=== PATIENT | male | born 1945 | race Caucasian/White ===

== ENCOUNTER → 2017-04-05 | Outpatient (CLI) | payer MEDICARE ==
--- NOTE | 2017-04-05 08:09 | US ---
EXAMINATION TYPE: US duplex aorta DATE OF EXAM: 04/05/2017 COMPARISON: NONE CLINICAL HISTORY: Z13.9 FAMILY HX OF AAA,SCR.U/S. Screening, family history of AAA EXAM MEASUREMENTS: Abdominal Aorta: Proximal: 1.9 x 2.3cm Mid: 1.7 x 2.0cm Distal: 1.5 x 1.6cm Bifurcation: RT: 1.1 x 1.2cm LT: 0.9 x 1.2cm *Technical limitations due to overlying bowel content, portions are obscured. Calcifications noted th roughout. No evidence of AAA at this time Exam noted suboptimal per technologist due to overlying bowel gas. IMPRESSION: Suboptimal study without greater than 3 cm aneurysmal change to the abdominal aorta iden tified.
== END | disposition home or self-care (01) ==
LOC: RADUSWWP 06:49
PROVIDERS: ATTEND Family Medicine
DX: I71.4 Abdominal aortic aneurysm, without rupture (principal); Z13.9 Encounter for screening, unspecified; Z82.49 Family history of ischemic heart disease and other diseases of the circulatory system
CPT/HCPCS: 93979

== ENCOUNTER 2022-12-21 12:20 | Emergency (ER) | payer MEDICARE ==
[2022-12-21] MEDS ORDERED: LIDOCAINE 1% INJ 10MG/ML (30 ML VIAL-PF) SQ ONE (12:53)
--- NOTE | 2022-12-21 12:53 | ED ---
General Adult HPI - General Chief complaint: Wound/Laceration Stated complaint: cut hand Time Seen by Provider: 12/21/22 12:45 Source: patient Mode of arrival: ambulatory Limitations: no limitations - History of Present Illness Initial comments: 77-year-old male with no significant past medical history presenting to the ED with chief of laceration. 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 Denies any other injury. Last tetanus shot one year ago. No other complaints. - Related Data Allergies Allergy/AdvReac Type Severity Reaction Status Date / Time No Known Allergies Allergy Verified 12/21/22 12:41 Review of Systems ROS Statement: Those systems with pertinent positive or pertinent negative responses have been documented in the HPI. ROS Other: All systems not noted in ROS Statement are negative. Past Medical History Past Medical History: Diabetes Mellitus History of Any Multi-Drug Resistant Organisms: None Reported Past Surgical History: Orthopedic Surgery Additional Past Surgical History / Comment(s): lt shoulder Past Psychological History: No Psychological Hx Reported Smoking Status: Never smoker Past Alcohol Use History: None Reported Past Drug Use History: None Reported General Exam Limitations: no limitations Left Hand L/R Back: 1 - Linear laceration approximately 7 cm. No foreign bodies. An sensation of the hand intact. Neurological exam: Present: alert, oriented X3 Psychiatric exam: Present: normal affect, normal mood Skin exam: Present: warm, dry Course Vital Signs 12/21/22 12:38 Temperature 98.8 F Pulse Rate 100 Respiratory 20 Rate Blood Pressure 143/67 O2 Sat by Pulse 97 Oximetry Procedures - Laceration Laceration #1 Site: hand Size (cm): 7 Description: linear Depth: simple, single layer Sedation/Analgesia: none Anesthetic Used: lidocaine 1%, without epi Anesthesia Technique: local infiltration Amount (mls): 4 Pre-repair: wound explored, irrigated extensively Type of Sutures: nylon Size of Sutures: 4-0 Number of Sutures: 7 Technique: simple, interrupted Patient Tolerated Procedure: well, no complications Medical Decision Making - Medical Decision Making Was pt. sent in by a medical professional or institution (SOLANGE Aiken, UNDER[employer], urgent care, hospital, or intermediate...) When possible be specific @ -No Did you speak to anyone other than the patient for history (EMS, parent, family, police, friend...)? What history was obtained from this source @ -No Did you review nursing and triage notes (agree or disagree)? Why? @ -I reviewed and agree with nursing and triage notes Were old charts reviewed (outside hosp., previous admission, EMS record, old EKG, old radiological studies, urgent care reports/EKG's, intermediate records)? Report findings @ -No old charts were reviewed Differential Diagnosis (chest pain, altered mental status, abdominal pain women, abdominal pain men, vaginal bleeding, weakness, fever, dyspnea, syncope, headache, dizziness, GI bleed, back pain, seizure, CVA, palpatations, mental health, musculoskeletal)? @ -not applicable EKG interpreted by me (3pts min.). @ -As above X-rays interpreted by me (1pt min.). @ -None done CT interpreted by me (1pt min.). @ -None done U/S interpreted by me (1pt. min.). @ -None done What testing was considered but not performed or refused? (CT, X-rays, U/S, labs)? Why? @ -None What meds were considered but not given or refused? Why? @ -None Did you discuss the management of the patient with other professionals (professionals i.e. SOLANGE Aiken, [employer], lab, RT, psych nurse, home health care social worker, keyliner, teacher, public service officer, case packer)? Give summary @ -No Was smoking cessation discussed for >3mins.? @ -No Was critical care preformed (if so, how long)? @ -No Were there social determinants of health that impacted care today? How? (Homelessness, low income, unemployed, alcoholism, drug addiction, transportation, low edu. Level, literacy, decrease access to med. care, custodial, rehab)? @ -No Was there de-escalation of care discussed even if they declined (Discuss DNR or withdrawal of care, Hospice)? DNR status @ -No What co-morbidities impacted this encounter? (DM, HTN, Smoking, COPD, CAD, Cancer, CVA, ARF, Chemo, Hep., AIDS, mental health diagnosis, sleep apnea, morbid obesity)? @ -None Was patient admitted / discharged? Hospital course, mention meds given and route, prescriptions, significant lab abnormalities, going to OR and other pertinent info. @ -Discharged, patient had laceration repaired. Please see procedure note for further details Undiagnosed new problem with uncertain prognosis? @ -No Drug Therapy requiring intensive monitoring for toxicity (Heparin, Nitro, Insulin, Cardizem)? @ -No Were any procedures done? @ -Yes, please see procedure note further details Diagnosis/symptom? @ -Laceration Acute, or Chronic, or Acute on Chronic? @ -Acute Uncomplicated (without systemic symptoms) or Complicated (systemic symptoms)? @ -Complicated Side effects of treatment? @ -No Exacerbation, Progression, or Severe Exacerbation? @ -No Poses a threat to life or bodily function? How? (Chest pain, [place], [place], pneumonia, PE, COPD, DKA, ARF, appy, cholecystitis, CVA, Diverticulitis, Homicidal, Suicidal, threat to staff... and all critical care pts) @ -No Disposition Clinical Impression: Laceration of left hand Disposition: HOME SELF-CARE Condition: Good Additional Instructions: Please return to the Emergency Department if symptoms worsen or any other concerns. Wound care as discussed. Please see PCP or return in 10-14 days for suture removal. Monitor for signs of infection. Is patient prescribed a controlled substance at d/c from ED?: No Referrals: Ramón Rawls MD [Primary Care Provider] - 1-2 days Time of Disposition: 14:02
[2022-12-21] MEDS ORDERED: BACITRACIN OINT 1 EACH PACKET TOPICAL ONE (13:59)
[2022-12-21 14:26] VITALS: BP 139/81; PULSE 88; RESP 18; TEMP 98.4
== END 2022-12-21 14:24 | disposition home or self-care (01) ==
LOC: EC 12:20
DX: S61.412A Laceration without foreign body of left hand, initial encounter (principal); E11.9 Type 2 diabetes mellitus without complications; W45.8XXA Other foreign body or object entering through skin, initial encounter
CPT/HCPCS: 99283; 12002; J2001

== ENCOUNTER → 2024-06-17 | Outpatient (CLI) | payer MEDICARE ==
--- NOTE | 2024-06-17 09:57 | MM ---
Reason for Exam: Clinical finding. Baseline mammogram. Indicated Problems: Lump or thickening of the right side for 2 Week(s). Prior Study Comparison: Patient's first Mammogram. No prior studies available for comparison. Tissue Density: The breasts are almost entirely fatty. Findings: Analyzed By CAD. Scattered benign round and punctate calcifications are noted. Palpable marker placed at the lower axilla. There appear to be some underlying degenerative benign-appearing lymph nodes with large fatty brandie. Further ultrasound evaluation is recommended. Otherwise, no significant mass, suspicious microcalcification, or other discrete abnormality is seen. Overall Assessment: Incomplete: need additional imaging evaluation, BI-RAD 0 Management: Diagnostic Breast Ultrasound of the right breast. [facility], , 06/17/2024 9:54 AM. Electronically signed and approved by: Shannan Gonzalez M.D. Radiologist
--- NOTE | 2024-06-17 10:44 | USB ---
Reason for Exam: Clinical finding. Technique: Method: Targeted. Findings: The axilla of the right breast was scanned. Targeted ultrasound right axilla at the patient's palpable site shows a prominent 5.2 x 5.4 x 1.5 cm lymph node. There is very thin uniform cortex with large fatty hilum. No suspicious nodularity or soft tissue thickening is seen. No other solid or cystic lesion. Overall Assessment: Benign, BI-RAD 2 Management: Clinical Management of the right breast in 1 year. A large but benign lymph node noted in the right axilla at the patient's palpable site. Large fatty hilum and thin uniform cortex though the lymph node measures up to 5.2 cm. Correlate for a reactive/post inflammatory etiology. The patient can be rescanned if any suspicious clinical features develop or if any further enlargement is noted. Results were given to the patient verbally at the time of exam. [facility], , 06/17/2024 10:41 AM. Electronically signed and approved by: Shannan Gonzalez M.D. Radiologist
== END | disposition home or self-care (01) ==
LOC: RADMAMWWP 09:11
PROVIDERS: ATTEND Family Medicine
DX: N63.10 Unspecified lump in the right breast, unspecified quadrant (principal)
CPT/HCPCS: 77066; 76642; G0279; 77062

== ENCOUNTER 2024-07-30 17:54 | Observation (INO) | payer MEDICARE ==
--- NOTE | 2024-07-30 18:36 | ED ---
General Adult HPI - General Chief complaint: Neuro Symptoms/Deficit Stated complaint: Poss CVA Time Seen by Provider: 07/30/24 18:00 Source: patient, EMS Mode of arrival: EMS - History of Present Illness Initial comments: Patient is an 78-year-old male with a past medical history of diabetes presenting today for right-sided headache. Patient states he woke up this morning with right headache and right neck pain. States pain is reproducible palpation of the right worship. Took Tylenol this morning that had that slightly improved his headache. States at some point this morning he also felt like his speech was slurred that has since resolved. Has noticed discharge from his right eye over the last 2 to 3 days. Endorses mild dizziness, mild blurred vision out of the right eye. States blurred vision in his right eye has been on and off going over the "for a long time". States headache is 7 out of 10 and describes "as a pain". Not the worst headache of his life. He was not sudden onset. He denies any focal numbness or weakness. Denies any chest pain or shortness of breath. Denies any recent illness fevers or chills. Endorses nasal congestion. Denies Abdominal pain nausea, vomiting or diarrhea. Patient states the eye itself is not painful, he denies pain with extraocular movements. - Related Data Home Medications Medication Instructions Recorded Confirmed Aspirin EC [Ecotrin Low Dose] 81 mg PO DAILY 07/30/24 07/30/24 Ibuprofen [Motrin] 800 mg PO TID PRN 07/30/24 07/30/24 Insulin Glargine,Hum.rec.anlog 40 unit SQ DAILY 07/30/24 07/31/24 [Basaglar Kwikpen U-100] Simvastatin [Zocor] 80 mg PO DAILY 07/30/24 07/30/24 Tamsulosin [Flomax] 0.4 mg PO DAILY 07/30/24 07/30/24 lisinopriL [Zestril] 10 mg PO DAILY 07/30/24 07/30/24 metFORMIN HCL [Glucophage] 1,000 mg PO BID 07/30/24 07/30/24 Dulaglutide [Trulicity] 0.75 mg SQ MO 07/31/24 07/31/24 Allergies Allergy/AdvReac Type Severity Reaction Status Date / Time No Known Allergies Allergy Verified 07/30/24 20:12 Review of Systems ROS Statement: Those systems with pertinent positive or pertinent negative responses have been documented in the HPI. ROS Other: All systems not noted in ROS Statement are negative. Constitutional: Denies: fever, chills Eyes: Reports: eye discharge, vision change. Denies: eye pain ENT: Reports: congestion Respiratory: Denies: dyspnea Cardiovascular: Denies: chest pain Gastrointestinal: Denies: abdominal pain, nausea, vomiting, diarrhea Neurological: Reports: headache. Denies: weakness, numbness, paresthesias, confusion, vertigo Past Medical History Past Medical History: Diabetes Mellitus History of Any Multi-Drug Resistant Organisms: None Reported Past Surgical History: Orthopedic Surgery Additional Past Surgical History / Comment(s): lt shoulder Past Psychological History: No Psychological Hx Reported Smoking Status: Never smoker Past Alcohol Use History: None Reported Past Drug Use History: None Reported - Past Family History Mother Family Medical History: Diabetes Mellitus Father Family Medical History: CVA/TIA Brother(s) Family Medical History: Diabetes Mellitus General Exam - General Exam Comments Initial Comments: PE: CONSTITUTIONAL: [no apparent distress, well appearing] SKIN: [warm, dry, no jaundice, hives or petechiae] EYES:[ pupils are equally round, extraocular movements intact without nystagmus, scant dried discharge around right eye, clear conjunctiva, non-icteric sclera, ] HENT: [normocephalic, atraumatic, moist mucus membranes, oropharynx clear without exudates] NECK: , [Full range of motion, normal appearance] PULMONARY: [clear to auscultation without wheezes, rhonchi, or rales, normal excursion, no accessory muscle use and no stridor] CARDIOVASCULAR:[ regular rate, rhythm, normal S1 and S2. No appreciated murmurs, rubs or gallops. Strong radial pulses with intact distal perfusion. No lower extremity edema] GASTROINTESTINAL: [soft, active bowel sounds throughout, non-tender, non-diste nded, no palpable masses, no rebound or guarding. No hepatosplenomegaly] GENITOURINARY: MUSCULOSKELETAL: [Extremities have no gross deformity, no edema, redness, or swelling. No calf swelling ] NEUROLOGIC: [_a/o x 3, GCS 15, normal mentation and speech. Moves all extremities x 4 without motor or sensory deficit. 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 Motor strength is 5/5 in all extremities. No abnormal movements. Normal muscle tone. Sensation to light touch is intact bilaterally. No cerebellar signs (cfrqly-mf-[id number], vqvw-hz-xrix, and rapid alternating movements are normal), finger-nose testing with the right upper extremity and rapid alternating movements of right upper extremity were unable to be obtained due to chronic contractures of this ex tremity] PSYCHIATRIC:[ _normal mood and affect, thought process is clear and linear] Course Vital Signs 07/30/24 07/30/24 07/30/24 18:27 21:25 22:44 Temperature 98.1 F Pulse Rate 75 86 Respiratory 16 18 18 Rate Blood Pressure 164/112 140/78 139/63 O2 Sat by Pulse 100 96 Oximetry EKG Findings - EKG Comments: EKG Findings:: Sinus Rhythm w/ first degree AV block, rate 76 bpm, GA int 258 ms, QRS duration 166 ms, QT/QTc 4 6/437 ms, left axis deviation, right bundle branch block, no ST elevations or depressions, no prior for comparison Medical Decision Making - Medical Decision Making Was pt. sent in by a medical professional or institution (, PA, PUBLIC RELATIONS STUDIES DIRECTOR, urgent care, hospital, or fpc...) When possible be specific @ -No Did you speak to anyone other than the patient for history (EMS, parent, family, police, friend...)? What history was obtained from this source Pt's son also notes patient has had a decreased appetite today and has not eaten much which is not normal for him Did you review nursing and triage notes (agree or disagree)? Why? @ -I reviewed nursing and triage notes Were old charts reviewed (outside hosp., previous admission, EMS record, old EKG, old radiological studies, urgent care reports/EKG's, fpc records)? Report findings @ -Medical records reviewed Differential Diagnosis (chest pain, altered mental status, abdominal pain women, abdominal pain men, vaginal bleeding, weakness, fever, dyspnea, syncope, headache, dizziness, GI bleed, back pain, seizure, CVA, palpatations, mental health, musculoskeletal)? @ -Differential Headache: Migraine, tension MALDONADO, cluster MALDONADO, central venous thrombosis, temporal arteritis, acute closure glaucoma, intercranial hemorrhage, sinusitis, this is not meant to be an all-inclusive list. EKG interpreted by me (3pts min.). @ -As above X-rays interpreted by me (1pt min.). @ -Chest x-ray shows no cardiomegaly, no consolidations or pleural effusions CT interpreted by me (1pt min.). @ -I see no evidence of hemorrhage or mass effect on CT brain, no evidence of periorbital abscess, no evidence of large vessel occlusion or dissection on CTA U/S interpreted by me (1pt. min.). @ -None done What testing was considered but not performed or refused? (CT, X-rays, U/S, labs)? Why? @ -None What meds were considered but not given or refused? Why? @ -None Did you discuss the management of the patient with other professionals (professionals i.e. , PA, PUBLIC RELATIONS STUDIES DIRECTOR, lab, RT, psych nurse, social worker palliative care, truck packer, teacher, international first officer, pillowcase sewer)? Give summary @ -No Was smoking cessation discussed for >3mins.? @ -No Was critical care preformed (if so, how long)? @ -No Were there social determinants of health that impacted care today? How? (Homelessness, low income, unemployed, alcoholism, drug addiction, transportation, low edu. Level, literacy, decrease access to med. care, care home, rehab)? @ -No Was there de-escalation of care discussed even if they declined (Discuss DNR or withdrawal of care, Hospice)? @ -No What co-morbidities impacted this encounter? (DM, HTN, Smoking, COPD, CAD, Cancer, CVA, ARF, Chemo, Hep., AIDS, mental health diagnosis, sleep apnea, morbid obesity)? @DM Was patient admitted / discharged? Hospital course, mention meds given and route, prescriptions, significant lab abnormalities, going to OR and other pertinent info. @Admission- Patient is a pleasant 78-year-old gentleman history diabetes presenting today for right sided headache intermittent blurred vision, and malaise. Patient seen and assessed on arrival. Complete history physical exam obtained. No focal neuro deficits on assessment. Differential diagnoses above. Will administer Tylenol, obtain CT brain CTA head and neck, stroke workup, ESR, CRP. Pt and son agreeable with POC . I personally reviewed patient CT brain, CTA, I see no evidence of hemorrhage, mass effect or large vessel occlusion or dissection. I see no evidence of orbital cellulitis or infectious process. Patient remains painful despite Tylenol. I did attempt nasal cannula oxygen as I considered cluster headaches as part of differential however this did not improve patient's headache. At this point we will give tramadol with Tylenol, I remain concerned for temporal arteritis given pattern and description of symptoms, so we will administer pre dnisone and admit. Patient's son and patient agreeable with plan of care. Additionally, intraocular pressures were checked, wnl, pressure in Right eye was 9, left eye was 8. Case discussed with Dr. Rawls, kindly accepts patient for admission. Undiagnosed new problem with uncertain prognosis? @ -No Drug Therapy requiring intensive monitoring for toxicity (Heparin, Nitro, Insulin, Cardizem)? @ -No Were any procedures done? @ -No Diagnosis/symptom? @Right sided headache, possible temporal arteritis Acute, or Chronic, or Acute on Chronic? acute Uncomplicated (without systemic symptoms) or Complicated (systemic symptoms)? complicated Side effects of treatment? @ -No Exacerbation, Progression, or Severe Exacerbation? @ -No Poses a threat to life or bodily function? How? (Chest pain, [place], [place], pneumonia, PE, COPD, DKA, ARF, appy, cholecystitis, CVA, Diverticulitis, Homicidal, Suicidal, threat to staff... and all critical care pts) Yes, if 2/2 TIA or temporal arteritis, could lead to permanant vision loss if left untreated - Lab Data Result diagrams: 07/30/24 18:43 07/30/24 18:43 Lab Results 07/30/24 07/30/24 07/30/24 Range/Units 18:36 18:43 18:43 WBC 9.4 (3.8-10.6) k/uL RBC 4.60 (4.30-5.90) m/uL Hgb 13.3 (13.0-17.5) gm/dL Hct 39.5 (39.0-53.0) % MCV 85.8 (80.0-100.0) fL MCH 29.0 (25.0-35.0) pg MCHC 33.8 (31.0-37.0) g/dL RDW 12.6 (11.5-15.5) % Plt Count 248 (150-450) k/uL MPV 8.1 Neutrophils % 79 % Lymphocytes % 14 % Monocytes % 5 % Eosinophils % 1 % Basophils % 1 % Neutrophils # 7.4 (1.3-7.7) k/uL Lymphocytes # 1.3 (1.0-4.8) k/uL Monocytes # 0.5 (0-1.0) k/uL Eosinophils # 0.1 (0-0.7) k/uL Basophils # 0.1 (0-0.2) k/uL ESR 9 (0-20) mm/Hr PT 11.1 (10.0-12.5) sec INR 1.0 (<1.2) APTT 21.5 L (22.0-30.0) sec Sodium (137-145) mmol/L Potassium (3.5-5.1) mmol/L Chloride (98-107) mmol/L Carbon Dioxide (22-30) mmol/L Anion Gap mmol/L BUN (9-20) mg/dL Creatinine (0.66-1.25) mg/dL Est GFR (CKD-EPI)AfAm (>60 ml/min/1.73 sqM) Est GFR (CKD-EPI)NonAf (>60 ml/min/1.73 sqM) Glucose (74-99) mg/dL POC Glucose (mg/dL) 83 (70-110) mg/dL POC Glu Pecan Huller ID Yarger Tra Calcium (8.4-10.2) mg/dL Total Bilirubin (0.2-1.3) mg/dL AST (17-59) U/L ALT (4-49) U/L Alkaline Phosphatase (38-126) U/L Creatine Kinase (55-170) U/L Troponin I (0.000-0.034) ng/mL C-Reactive Protein (<1.0) mg/dL Total Protein (6.3-8.2) g/dL Albumin (3.5-5.0) g/dL Influenza Type A (PCR) (Not Detectd) Influenza Type B (PCR) (Not Detectd) RSV (PCR) (Not Detectd) SARS-CoV-2 (PCR) (Not Detectd) 07/30/24 07/30/24 07/30/24 Range/Units 18:43 18:43 19:59 WBC (3.8-10.6) k/uL RBC (4.30-5.90) m/uL Hgb (13.0-17.5) gm/dL Hct (39.0-53.0) % MCV (80.0-100.0) fL MCH (25.0-35.0) pg MCHC (31.0-37.0) g/dL RDW (11.5-15.5) % Plt Count (150-450) k/uL MPV Neutrophils % % Lymphocytes % % Monocytes % % Eosinophils % % Basophils % % Neutrophils # (1.3-7.7) k/uL Lymphocytes # (1.0-4.8) k/uL Monocytes # (0-1.0) k/uL Eosinophils # (0-0.7) k/uL Basophils # (0-0.2) k/uL ESR (0-20) mm/Hr PT (10.0-12.5) sec INR (<1.2) APTT (22.0-30.0) sec Sodium 139 (137-145) mmol/L Potassium 3.8 (3.5-5.1) mmol/L Chloride 107 (98-107) mmol/L Carbon Dioxide 21 L (22-30) mmol/L Anion Gap 11 mmol/L BUN 20 (9-20) mg/dL Creatinine 1.04 (0.66-1.25) mg/dL Est GFR (CKD-EPI)AfAm 78 (>60 ml/min/1.73 sqM) Est GFR (CKD-EPI)NonAf 68 (>60 ml/min/1.73 sqM) Glucose 81 (74-99) mg/dL POC Glucose (mg/dL) (70-110) mg/dL POC Glu Pecan Huller ID Calcium 9.7 (8.4-10.2) mg/dL Total Bilirubin 0.5 (0.2-1.3) mg/dL AST 16 L (17-59) U/L ALT 11 (4-49) U/L Alkaline Phosphatase 83 (38-126) U/L Creatine Kinase 74 (55-170) U/L Troponin I 0.015 (0.000-0.034) ng/mL C-Reactive Protein <0.5 (<1.0) mg/dL Total Protein 6.5 (6.3-8.2) g/dL Albumin 4.2 (3.5-5.0) g/dL Influenza Type A (PCR) Not Detected (Not Detectd) Influenza Type B (PCR) Not Detected (Not Detectd) RSV (PCR) Not Detected (Not Detectd) SARS-CoV-2 (PCR) Not Detected (Not Detectd) 07/30/24 Range/Units 20:42 WBC (3.8-10.6) k/uL RBC (4.30-5.90) m/uL Hgb (13.0-17.5) gm/dL Hct (39.0-53.0) % MCV (80.0-100.0) fL MCH (25.0-35.0) pg MCHC (31.0-37.0) g/dL RDW (11.5-15.5) % Plt Count (150-450) k/uL MPV Neutrophils % % Lymphocytes % % Monocytes % % Eosinophils % % Basophils % % Neutrophils # (1.3-7.7) k/uL Lymphocytes # (1.0-4.8) k/uL Monocytes # (0-1.0) k/uL Eosinophils # (0-0.7) k/uL Basophils # (0-0.2) k/uL ESR (0-20) mm/Hr PT (10.0-12.5) sec INR (<1.2) APTT (22.0-30.0) sec Sodium (137-145) mmol/L Potassium (3.5-5.1) mmol/L Chloride (98-107) mmol/L Carbon Dioxide (22-30) mmol/L Anion Gap mmol/L BUN (9-20) mg/dL Creatinine (0.66-1.25) mg/dL Est GFR (CKD-EPI)AfAm (>60 ml/min/1.73 sqM) Est GFR (CKD-EPI)NonAf (>60 ml/min/1.73 sqM) Glucose (74-99) mg/dL POC Glucose (mg/dL) 102 (70-110) mg/dL POC Glu Pecan Huller ID Berny Haq Calcium (8.4-10.2) mg/dL Total Bilirubin (0.2-1.3) mg/dL AST (17-59) U/L ALT (4-49) U/L Alkaline Phosphatase (38-126) U/L Creatine Kinase (55-170) U/L Troponin I (0.000-0.034) ng/mL C-Reactive Protein (<1.0) mg/dL Total Protein (6.3-8.2) g/dL Albumin (3.5-5.0) g/dL Influenza Type A (PCR) (Not Detectd) Influenza Type B (PCR) (Not Detectd) RSV (PCR) (Not Detectd) SARS-CoV-2 (PCR) (Not Detectd) Disposition Clinical Impression: Right sided temporal headache Disposition: ADMITTED IP TO THIS HOSP Condition: Stable
[2024-07-30 18:39] LABS: Glucose,Whole Blood 83 mg/dL (70-110)
[2024-07-30 18:55] LABS: Basophils # (A) 0.1 k/uL (0-0.2); Basophils % (A) 1 %; Eosinophils # (A) 0.1 k/uL (0-0.7); Eosinophils % (A) 1 %; HCT 39.5 % (39.0-53.0); HGB 13.3 gm/dL (13.0-17.5); Lymphocytes # (A) 1.3 k/uL (1.0-4.8); Lymphocytes % (A) 14 %; MCHC 33.8 g/dL (31.0-37.0); MCV 85.8 fL (80.0-100.0); Mean Platelet Volume 8.1; Monocytes # (A) 0.5 k/uL (0-1.0); Monocytes % (A) 5 %; Neutrophils # (A) 7.4 k/uL (1.3-7.7); Neutrophils % (A) 79 %; Platelet Count 248 k/uL (150-450); RDW 12.6 % (11.5-15.5); WBC 9.4 k/uL (3.8-10.6)
[2024-07-30] MEDS: ACETAMINOPHEN TAB 325 MG TAB PO STA (18:58)
[2024-07-30 19:12] LABS: ALT 11 U/L (4-49); AST 16 U/L (17-59); African American GFR (CKD) 78 (>60 ml/min/1.73 sqM); Albumin 4.2 g/dL (3.5-5.0); Alkaline Phosphatase 83 U/L (38-126); Anion Gap 11 mmol/L; Blood Urea Nitrogen 20 mg/dL (9-20); C Reactive Protein <0.5 mg/dL (<1.0); Calcium 9.7 mg/dL (8.4-10.2); Carbon Dioxide 21 mmol/L (22-30); Chloride 107 mmol/L (98-107); Creatine Kinase 74 U/L (55-170); Glucose 81 mg/dL (74-99); Non-African American GFR(CKD) 68 (>60 ml/min/1.73 sqM); Potassium 3.8 mmol/L (3.5-5.1); Sodium 139 mmol/L (137-145); Total Bilirubin 0.5 mg/dL (0.2-1.3); Total Protein 6.5 g/dL (6.3-8.2)
[2024-07-30 19:23] LABS: Prothrombin Time 11.1 sec (10.0-12.5)
[2024-07-30 19:25] LABS: Partial Thromboplastin Time 21.5 sec (22.0-30.0)
--- NOTE | 2024-07-30 20:36 | XR ---
EXAMINATION TYPE: XR chest 2V DATE OF EXAM: 07/30/2024 8:23 PM COMPARISON: None. CLINICAL INDICATION: Male, 78 years old with history of R. MALDONADO, stroke workup, pain. TECHNIQUE: Frontal and lateral views of the chest are obtained. FINDINGS: There is no focal air space opacity, pleural effusion, or pneumothorax seen. The cardiac silhouette size is within normal limits. Bridging osteophytes in the thoracic spine are present. IMPRESSION: No acute cardiopulmonary process. [facility], , 07/30/2024 8:34 PM
[2024-07-30] MEDS: PROPARACAINE 0.5% OPHTH DROPS 15 ML BTL RIGHT EYE STA (20:38)
--- NOTE | 2024-07-30 20:39 | CT ---
EXAMINATION TYPE: CT brain wo con DATE OF EXAM: 07/30/2024 COMPARISON: None. CLINICAL INDICATION: Male, 78 years old with history of Right sided Headache; PHH, Headache/Dizziness . pt. c/o sharp pain behind R eye. Pt. does have hx of pain behind his eye that he sees an eye doctor for. The pain is more intense today. Possible stroke like symptoms, unsteady gate per EMS. TECHNIQUE: CT scan of the head is performed without contrast. CT DLP: Combined 1793.4 mGycm Automated exposure control for dose reduction was used. FINDINGS: There is no acute intracranial hemorrhage or midline shift identified. There is moderate diffuse ventricular and sulcal prominence consistent with diffuse age-related cerebral atrophy. Ther e is mild low-attenuation in the periventricular white matter consistent with chronic small vessel is chemic change. Bilateral aphakia is present. There is small mucous retention cyst or polyp in the inf erior right maxillary sinus otherwise the paranasal sinuses are clear. No suspicious opacification of the mastoid air cells is seen bilaterally. IMPRESSION: No acute intracranial hemorrhage or midline shift. [facility], , 07/30/2024 8:36 PM
[2024-07-30 20:44] LABS: Glucose,Whole Blood 102 mg/dL (70-110)
--- NOTE | 2024-07-30 20:45 | CT ---
EXAMINATION TYPE: CT angio head neck DATE OF EXAM: 07/30/2024 COMPARISON: None. CLINICAL INDICATION: Male, 78 years old with history of R. MALDONADO, R. Neck pain, R. eye blurred vision; P HH, Headache/Dizziness. pt. c/o sharp pain behind R eye. Pt. does have hx of pain behind his eye that he sees an eye doctor for. The pain is more intense today. Possible stroke like symptoms, unsteady g ate per EMS. TECHNIQUE: CTA scan of the head and neck is performed with IV Contrast, patient injected with 65cc m L of Isovue 370, axial images are obtained, coronal and sagittal reformatted images are reviewed. 3D reconstructed images are created on an independent workstation and reviewed. CT DLP: Combined 1793.4 mGycm Automated exposure control for dose reduction was used. NASCET criteria was used in interpretation of this exam? FINDINGS: Right Carotid System: The common carotid artery and external carotid artery are patent. The carotid bifurcation demonstrate s no evidence of hemodynamically significant stenosis. Klqm-ck-zhlpytkv peripheral calcified plaque a t right carotid bulb level. The remaining portions of the internal carotid artery demonstrate normal size without significant narrowing. Left Carotid System: The common carotid artery and external carotid artery are patent. The carotid bifurcation demonstrate s no evidence of hemodynamically significant stenosis. Mild peripheral calcified plaque left carotid bulb level there The remaining portions of the internal carotid artery demonstrate normal size withou t significant narrowing. Vertebral arteries are patent without evidence hemodynamically significant stenosis. Left vertebral artery is dominant. Patent anterior communicating artery is seen. No large vessel occlusion or aneur ysm. There is a three-vessel aortic arch. The origins of the great vessels are patent. No evidence of hemo dynamically significant stenosis. Other: Scoliosis with multilevel spurring and disc space narrowing throughout the cervical spine IMPRESSION: 1. No significant stenosis at the carotid bifurcations. No large vessel occlusion at level of [place]. [facility], , 07/30/2024 8:43 PM
[2024-07-30] MEDS ORDERED: ALPRAZolam 0.25 MG TAB PO PRN (21:04)
[2024-07-30] MEDS ORDERED: traMADol 50 MG TAB PO PRN (21:04)
[2024-07-30] MEDS ORDERED: NALOXONE 0.4 MG/ML 1 ML VIAL IV PRN (21:04)
[2024-07-30] MEDS ORDERED: PROCHLORPERAZINE 5 MG TAB PO PRN (21:04)
[2024-07-30] MEDS: IBUPROFEN 400 MG TAB PO STA (21:21)
[2024-07-30] MEDS: traMADol-ACETAMINOP 37.5-325MG 1 EACH TAB PO STA (21:23)
[2024-07-30] MEDS: predniSONE 20 MG TAB PO STA (21:23)
[2024-07-30 21:34] LABS: Influenza A Not Detected (Not Detectd); Influenza B Not Detected (Not Detectd); RSV Not Detected (Not Detectd)
[2024-07-31] MEDS: CIPROFLOXACIN 0.3% OPHTH SOLN 5 ML BTL RIGHT EYE SCH (00:09)
[2024-07-31] MEDS ORDERED: ACETAMINOPHEN TAB 325 MG TAB PO PRN (03:00)
[2024-07-31 03:40] LABS: Erythrocyte Sedimentation Rate 9 mm/Hr (0-20)
[2024-07-31 06:30] LABS: Glucose,Whole Blood 154 mg/dL (70-110)
[2024-07-31] MEDS: INSULIN DETEMIR (LEVEMIR) 100 UNIT/ML SYR SQ SCH (06:37)
[2024-07-31] MEDS: INSULIN ASPART (NovoLOG) 100 UNIT/ML VIAL SQ SCH (06:37)
--- NOTE | 2024-07-31 08:47 | P.HPIM ---
History of Present Illness H&P Date: 07/31/24 This is an 78-year-old male who presented to the emergency department with a complaint of a right sided headache. Patient reports he had woken up with a headache and some right neck pain. Patient had taken some Tylenol with a little improvement but also noticed his speech felt a little off. His speech has since resolved. He also reports some mild blurred vision at the time of headache but his vision is normal at this time. Patient reports he does not usually get headaches so this felt out of the norm for him. He is seen this morning laying in bed resting comfortably. He reports his headache is improved and he is feeling a lot better since yesterday. Imaging has been negative. Neurology is on consult. Further medical history as noted below. . Review of Systems Constitutional: Denies chills, Denies fever Cardiovascular: Denies chest pain, Denies dyspnea on exertion Respiratory: Denies cough, Denies dyspnea Gastrointestinal: Denies nausea, Denies vomiting Musculoskeletal: Denies arm numbness/tingling, Denies leg numbness/tingling Neurological: Reports headaches, Denies weakness, Denies visual changes Past Medical History Past Medical History: Diabetes Mellitus, GERD/Reflux, Hyperlipidemia, Hypertension, Prostate Disorder History of Any Multi-Drug Resistant Organisms: None Reported Past Surgical History: Orthopedic Surgery Additional Past Surgical History / Comment(s): lt shoulder Smoking Status: Never smoker - Past Family History Mother Family Medical History: Diabetes Mellitus Father Family Medical History: CVA/TIA Brother(s) Family Medical History: Diabetes Mellitus Medications and Allergies Home Medications Medication Instructions Recorded Confirmed Type Aspirin EC [Ecotrin Low Dose] 81 mg PO DAILY 07/30/24 07/30/24 History Ibuprofen [Motrin] 800 mg PO TID PRN 07/30/24 07/30/24 History Insulin Glargine,Hum.rec.anlog 40 unit SQ DIRECTED 07/30/24 07/30/24 History [Basaglar Kwikpen U-100] Simvastatin [Zocor] 80 mg PO DAILY 07/30/24 07/30/24 History Tamsulosin [Flomax] 0.4 mg PO DAILY 07/30/24 07/30/24 History Trulicity (Unknown Dose) 1 dose SQ MO 07/30/24 07/30/24 History lisinopriL [Zestril] 10 mg PO DAILY 07/30/24 07/30/24 History metFORMIN HCL [Glucophage] 1,000 mg PO BID 07/30/24 07/30/24 History Allergies Allergy/AdvReac Type Severity Reaction Status Date / Time No Known Allergies Allergy Verified 07/30/24 20:12 Physical Exam Vitals: Vital Signs Temp Pulse Pulse Resp BP BP Pulse Ox 07/31/24 07:00 97.5 F L 84 16 133/63 98 07/31/24 06:09 97 18 123/58 99 07/30/24 23:44 98.2 F 77 18 145/81 98 07/30/24 22:44 86 18 139/63 96 07/30/24 21:25 18 140/78 07/30/24 18:27 98.1 F 75 16 164/112 100 Intake and Output 07/30/24 07/31/24 07/31/24 22:59 06:59 14:59 Other: Voiding Method Toilet # Voids 1 Weight 104.326 kg 104.326 kg - Constitutional General appearance: cooperative, no acute distress - EENT Eyes: PERRLA - Neck Neck: no lymphadenopathy, normal ROM, no rigidity - Respiratory Respiratory: bilateral: CTA - Cardiovascular Rhythm: regular Heart sounds: normal: S1, S2 - Gastrointestinal General gastrointestinal: no soft, no tenderness - Integumentary Integumentary: normal, normal turgor - Neurologic Neurologic: CNII-XII intact - Psychiatric Psychiatric: A&O x's 3, appropriate affect, intact judgment & insight Results CBC & Chem 7: 07/30/24 18:43 07/30/24 18:43 Labs: Abnormal Lab Results - Last 24 Hours (Table) 07/30/24 07/30/24 07/31/24 Range/Units 18:43 18:43 06:28 APTT 21.5 L (22.0-30.0) sec Carbon Dioxide 21 L (22-30) mmol/L POC Glucose (mg/dL) 154 H (70-110) mg/dL AST 16 L (17-59) U/L Thrombosis Risk Factor Assmnt - Choose All That Apply Any of the Below Risk Factors Present?: Yes Each Factor Represents 1 point: Obesity (BMI >25) Other Risk Factors: Yes Each Risk Factor Represents 3 Points: Age 75 years or older Thrombosis Risk Factor Assessment Total Risk Factor Score: 4 Thrombosis Risk Factor Assessment Level: Moderate Risk Assessment and Plan (1) Right sided temporal headache Current Visit: Yes Status: Acute Code(s): R51.9 - HEADACHE, UNSPECIFIED SNOMED Code(s): 04845815 (2) Hypertension Current Visit: Yes Status: Acute Code(s): I10 - ESSENTIAL (PRIMARY) HYPERTENSION SNOMED Code(s): 02318144 (3) Hyperlipidemia Current Visit: Yes Status: Acute Code(s): E78.5 - HYPERLIPIDEMIA, UNSPEC IFIED SNOMED Code(s): 87882492 (4) Diabetes mellitus Current Visit: Yes Status: Acute Code(s): E11.9 - TYPE 2 DIABETES MELLITUS WITHOUT COMPLICATIONS SNOMED Code(s): 90981354 Plan: Await recommendations from neurology. Patient seen and evaluated by nurse practitioner, physician in agreement with plan.
[2024-07-31] MEDS: FAMOTIDINE 20 MG TAB PO SCH (08:59)
[2024-07-31] MEDS: lisinopriL 10 MG TAB PO SCH (08:59)
[2024-07-31] MEDS: TAMSULOSIN 0.4 MG CAP.ER.24H PO SCH (08:59)
[2024-07-31] MEDS: ASPIRIN 81 MG PO SCH (08:59)
[2024-07-31] MEDS: ATORVASTATIN 40 MG TAB PO SCH (08:59)
[2024-07-31] MEDS: metFORMIN 500 MG TAB PO SCH (08:59)
[2024-07-31 11:48] LABS: Glucose,Whole Blood 161 mg/dL (70-110)
[2024-07-31] MEDS: CLOPIDOGREL 75 MG TAB PO SCH (17:17)
[2024-07-31 17:27] LABS: Glucose,Whole Blood 102 mg/dL (70-110)
[2024-07-31 20:52] LABS: Glucose,Whole Blood 137 mg/dL (70-110)
[2024-08-01 06:20] LABS: Glucose,Whole Blood 64 mg/dL (70-110)
[2024-08-01 06:42] LABS: Glucose,Whole Blood 84 mg/dL (70-110)
[2024-08-01 07:01] LABS: Glucose,Whole Blood 108 mg/dL (70-110)
--- NOTE | 2024-08-01 08:03 | P.CNNES ---
History of Present Illness Consult date: 07/31/24 Requesting physician: Kelly Reyes Reason for Consult: Headache, possible TIA History of Present Illness: Patient is a 78-year-old left-handed male with history of hypertension, history of cerebral palsy with right arm weakness since , came to the hospital by ambulance yesterday at 5:54 PM for some vague neurological symptoms. Patient states that yesterday he had a spell when he was "out of wack". He was feeling slightly dizzy, lightheaded, but no spinning. He was feeling off-balance. He did not pass out. Prior to that he was working outside under the truck for about hour and a half. He came inside the house and was sitting for an hour. Suddenly at around 2-3 p.m., he just started feeling "crappy", with symptoms as mentioned above. There was no numbness or tingling. Patient states that his daughter did notice some slight facial droop on one side. There was nothing new with the right eye As per EMS flowsheet when they arrived patient was sitting upright alert oriented x 4 in care of family. Family mentioned that about 1 hour prior to calling 911 they noticed a change in patient's speech. Patient complained of not feeling right and he told family something was feeling off. Patient complaining of feeling weak, lethargic. Legs feel heavy. Patient mentioned that in the morning he woke up with pain in the right side of his neck. At approximately 3:46 PM he developed right temporal headache. He describes pain as sharp in nature. Also had dizziness. Patient's right eye is red and watery. Patient has been dealing with right eye issues for a few weeks. Patient denied falling any chest pain or shortness of breath. No nausea vomiting diarrhea. Blood sugar was 98. Blood pressure 150/60. Heart rate 86. Respiration 20. Lungs were clear. EKG showed sinus rhythm with RBBB. During transport patient kept on repeating "did I tell you I have a headache and I am dizzy". Patient has been afebrile. Blood pressure was elevated on arrival 164/112 but came down to 140/78. Blood test shows normal CBC, PT PTT, normal CMP. Troponin negative CK normal. Influenza, RSV and coronavirus PCR negative. EKG showed sinus rhythm with first-degree AV block. CT head showed no acute intracranial hemorrhage or midline shift. I personally reviewed CT head, agree with the findings. Chest x-ray showed no acute process. CTA of head and neck revealed no significant stenosis in the carotid bifurcations. No large vessel occlusions at the level of [place]. Patient says that his symptoms persisted overnight and today sometimes between 10-12 noon, the symptoms have disappeared. At present patient states that he feels good, no headache. He is noticing some soreness in the neck but otherwise no symptoms. Patient does not use any assistive device at home. He lives with his daughter and son-in-law. Patient does admit to having some right temporal sore spot if pushes words. He does have some decreased hearing. Patient has history of diabetes for about 25-30 years. Denies hypertension. Denies previous history of strokes or TIA. He has history of cerebral palsy, with right arm weakness since . He smoked less than one pack per day for only 4 years and then quit at age 21. Home medications include aspirin 81 mg (takes daily), lisinopril 10 mg, simvastatin 80 mg, Trulicity, Flomax, metformin Review of Systems All pertinent positive and negative resistance as mentioned above. Past Medical History Past Medical History: Diabetes Mellitus History of Any Multi-Drug Resistant Organisms: None Reported Past Surgical History: Orthopedic Surgery Additional Past Surgical History / Comment(s): lt shoulder Past Psychological History: No Psychological Hx Reported Smoking Status: Never smoker Past Alcohol Use History: None Reported Past Drug Use History: None Reported - Past Family History Mother Family Medical History: Diabetes Mellitus Father Family Medical History: CVA/TIA Brother(s) Family Medical History: Diabetes Mellitus Medications and Allergies Home Medications Medication Instructions Recorded Confirmed Type Aspirin EC [Ecotrin Low Dose] 81 mg PO DAILY 07/30/24 07/30/24 History Ibuprofen [Motrin] 800 mg PO TID PRN 07/30/24 07/30/24 History Insulin Glargine,Hum.rec.anlog 40 unit SQ DAILY 07/30/24 07/31/24 History [Basaglar Kwikpen U-100] Simvastatin [Zocor] 80 mg PO DAILY 07/30/24 07/30/24 History Tamsulosin [Flomax] 0.4 mg PO DAILY 07/30/24 07/30/24 History lisinopriL [Zestril] 10 mg PO DAILY 07/30/24 07/30/24 History metFORMIN HCL [Glucophage] 1,000 mg PO BID 07/30/24 07/30/24 History Dulaglutide [Trulicity] 0.75 mg SQ MO 07/31/24 07/31/24 History Allergies Allergy/AdvReac Type Severity Reaction Status Date / Time No Known Allergies Allergy Verified 07/30/24 20:12 Physical Examination - Vital Signs Vital Signs: Vital Signs Temp Pulse Pulse Resp BP BP Pulse Ox 07/31/24 07:00 97.5 F L 84 16 133/63 98 07/31/24 06:09 97 18 123/58 99 07/30/24 23:44 98.2 F 77 18 145/81 98 07/30/24 22:44 86 18 139/63 96 07/30/24 21:25 18 140/78 07/30/24 18:27 98.1 F 75 16 164/112 100 Intake and Output 07/30/24 07/31/24 07/31/24 22:59 06:59 14:59 Other: Voiding Method Toilet # Voids 1 Weight 104.326 kg 104.326 kg Patient is an elderly male, very pleasant, in no acute distress. Patient is alert awake oriented to time place and person. Speech and language functions are normal. Patient can name and repeat very well. No aphasia or dysarthria. Attention, concentration and fund of knowledge is adequate. On cranial nerve examination, pupils are equal, round and reacting to light, visual mccray are full on confrontation, with no neglect on double simultaneous stimulation. Extraocular muscles are intact with no nystagmus. Face is symmetric, tongue protrudes to the midline. Palatal elevation and sensation normal, hearing and shoulder shrug normal, facial sensation normal. On muscle strength testing, there is right pronator drift but that is from his previous cerebral palsy. The strength is normal in left arm and both legs distally and proximally. In the right upper extremity, deltoid is 5 but very decreased range of motion. Biceps 5-, triceps 0, wrist extension 2, interossei 2. Deep tendon reflexes are symmetric and plantars downgoing. Sensory to touch is equal with no neglect on double simultaneous stimulation. Cerebellar function showed no ataxia for [id number] testing. No dysdiadochokinesia. No ataxia for [id number]-ri-[id number] testing on either side. Tone and bulk of muscles normal. Gait deferred.. On general examination, there is no carotid bruit or murmur, S1-S2 audible. Chest is clear on consultation. Abdomen is soft nontender. No organomegaly, bowel sounds present. Peripheral pulses are present. No peripheral edema. Results - Laboratory Findings CBC and BMP: 07/30/24 18:43 07/30/24 18:43 Abnormal Lab Findings: Abnormal Labs 07/30/24 07/30/24 07/31/24 18:43 18:43 06:28 APTT 21.5 L Carbon Dioxide 21 L POC Glucose (mg/dL) 154 H AST 16 L 07/31/24 11:47 APTT Carbon Dioxide POC Glucose (mg/dL) 161 H AST Assessment and Plan Assessment: * Possible TIA manifesting with dizziness, off balance, and some facial droop noticed by patient's daughter. Symptoms resolved in about 20-22 hours. At present he has no symptoms at all symptoms resolved. * Diabetes * History of cerebral palsy with right arm weakness. Plan: * Patient needs workup for TIA. * 2-D echo with bubble study to rule out PFO * CTA head and neck showed: No significant stenosis in the carotid bifurcations. No large vessel occlusion at the level of [place]. * Fasting a.m. lipid panel * Hemoglobin A1c 5.6, very well controlled * B12, folate. * Optimize control of blood pressure * Patient was taking aspirin 81 mg daily prior to arrival. We will add Plavix for now. DAPT for 21 days, then stop aspirin. * Neuro checks every 4 hours. * Telemetry monitoring rule out any arrhythmia * DVT prophylaxis: Patient is low risk, as patient is ambulatory. * Neurology will continue to follow. Thank you for the consult.
--- NOTE | 2024-08-01 08:10 | P.PN ---
Subjective Progress Note Date: 08/01/24 Principal diagnosis: The patient came in with significant temporal headache. TIA workup is pending. Neurology consult is noted. Appreciate input. Echocardiogram is pending The patient feels much more stable today. No voiding difficulties. No chest pain no shortness of breath Objective - Vital Signs Vital signs: Vital Signs Temp 98.7 F 08/01/24 01:30 Pulse 81 08/01/24 01:30 Resp 17 08/01/24 01:30 BP 113/57 08/01/24 01:30 Pulse Ox 97 08/01/24 01:30 FiO2 Intake & Output 07/31/24 08/01/24 08/01/24 18:59 06:59 18:59 Intake Total 118 Balance 118 Intake: Oral 118 Other: Voiding Method Toilet Toilet # Voids 2 - Constitutional General appearance: Present: cooperative, no acute distress - EENT Eyes: Absent: abnormal pupil - Neck Neck: Absent: lymphadenopathy - Respiratory Respiratory: bilateral: diminished - Cardiovascular Rhythm: regular Heart sounds: normal: S1, S2 Abnormal Heart Sounds: Absent: S3 Gallop - Gastrointestinal General gastrointestinal: Present: soft. Absent: tenderness - Integumentary Integumentary: Absent: cellulitis - Labs CBC & Chem 7: 07/30/24 18:43 07/30/24 18:43 Labs: Abnormal Lab Results - Last 24 Hours (Table) 07/31/24 07/31/24 08/01/24 Range/Units 11:47 20:46 06:14 POC Glucose (mg/dL) 161 H 137 H 64 L (70-110) mg/dL Assessment and Plan (1) Diabetes mellitus Current Visit: Yes Status: Acute Code(s): E11.9 - TYPE 2 DIABETES MELLITUS WITHOUT COMPLICATIONS SNOMED Code(s): 85165300 (2) Hyperlipidemia Current Visit: Yes Status: Acute Code(s): E78.5 - HYPERLIPIDEMIA, UNSPECIFIED SNOMED Code(s): 58214565 (3) Hypertension Current Visit: Yes Status: Acute Code(s): I10 - ESSENTIAL (PRIMARY) HYPERTENSION SNOMED Code(s): 48626682 (4) Right sided temporal headache Current Visit: Yes Status: Acute Code(s): R51.9 - HEADACHE, UNSPECIFIED SNOMED Code(s): 03417145 Plan: Await echo. Appreciate neurology input. Anticipate discharge next 24-48 hours if recovery trajectory continues and is cleared by neurology. See orders otherwise
[2024-08-01 08:54] LABS: Chol/HDL Ratio 2.61 Ratio; LDL Cholesterol,Calculated 54.5 mg/dL (0.0-131.0); VLDL Calculation 13.44 mg/dL (5.00-40.00)
[2024-08-01 10:56] LABS: Glucose,Whole Blood 105 mg/dL (70-110)
[2024-08-01 12:29] LABS: Glucose,Whole Blood 75 mg/dL (70-110)
[2024-08-01 17:43] LABS: Glucose,Whole Blood 159 mg/dL (70-110)
--- NOTE | 2024-08-01 17:47 | CA ---
Transthoracic Echo Report Name: Miguel Bloom Age: 78 Gender: M : 1945 Exam Date: 08/01/2024 07:28 Exam Location: [facility] Ht (in): 73 Wt (lb): 230 Ordering Physician: Anna Mitchell MD Attending/Referring Phys: Promotions Assistant Sales Marketing Nuzhat Owen RDCS Procedure CPT: Indications: tia Cardiac Hx: Technical Quality: Good Contrast 1: Agitated Saline Total Dose (mL): 9 Contrast 2: Total Dose (mL): MEASUREMENTS (Male / Female) Normal Values 2D ECHO LV Diastolic Diameter PLAX 5.2 cm 4.2 - 5.9 / 3.9 - 5.3 cm LV Systolic Diameter PLAX 3.3 cm IVS Diastolic Thickness 1.4 cm 0.6 - 1.0 / 0.6 - 0.9 cm LVPW Diastolic Thickness 1.5 cm 0.6 - 1.0 / 0.6 - 0.9 cm LV Relative Wall Thickness 0.6 RV Internal Dim ED PLAX 3.6 cm LA Systolic Diameter LX 4.1 cm 3.0 - 4.0 / 2.7 - 3.8 cm LV Diastolic Volume MOD BP 123.3 cm??? 67 - 155 / 56 - 104 cm??? LV Systolic Volume MOD BP 69.3 cm??? 22 - 58 / 19 - 49 cm??? LV Ejection Fraction MOD BP 43.8 % >= 55 % LV Cardiac Index MOD BP 1359.8 cm???/min???m??? LV Diastolic Volume MOD 4C 113.3 cm??? LV Systolic Volume MOD 4C 62.1 cm??? LV Ejection Fraction MOD 4C 45.2 % LV Cardiac Index MOD 4C 1289.9 cm???/min???m??? LV Diastolic Length 4C 8.5 cm LV Systolic Length 4C 7.3 cm LV Diastolic Volume MOD 2C 146.1 cm??? LV Systolic Volume MOD 2C 64.0 cm??? LV Ejection Fraction MOD 2C 56.2 % LV Cardiac Index MOD 2C 2068.8 cm???/min???m??? LV Diastolic Length 2C 8.3 cm LV Systolic Length 2C 7.5 cm LA Volume 54.9 cm??? 18 - 58 / 22 - 52 cm??? LA Volume Index 23.5 cm???/m??? 16 - 28 cm???/m??? M-MODE Aortic Root Diameter MM 3.6 cm AV Cusp Separation MM 2.2 cm DOPPLER AV Peak Velocity 143.9 cm/s AV Peak Gradient 8.3 mmHg MV Area PHT 1.7 cm??? Mitral E Point Velocity 46.9 cm/s Mitral A Point Velocity 80.7 cm/s Mitral E to A Ratio 0.6 MV Deceleration Time 457.6 ms TR Peak Velocity 160.0 cm/s TR Peak Gradient 10.2 mmHg Right Ventricular Systolic Press 15.1 mmHg FINDINGS Left Ventricle Left ventricular ejection fraction is estimated at 50-55 %. Left ventricular cavity size normal. Moderately increased septal wall thickness. Mildly increased left ventricular systolic volume. Right Ventricle Normal right ventricular size and function. . Right ventricular systolic pressure within normal limits. Right Atrium Normal right atrial size. No right atrial thrombus or mass seen. Negative agitated saline bubble study for right to left shunt. Left Atrium Normal left atrial size. No left atrial thrombus or mass present. Mitral Valve Structurally normal mitral valve. No mitral stenosis, regurgitation or prolapse. Aortic Valve Trileaflet aortic valve. No aortic valve stenosis or regurgitation. Tricuspid Valve Structurally normal tricuspid valve. Trace tricuspid regurgitation. Pulmonic Valve Structurally normal pulmonic valve. No pulmonic regurgitation. Pericardium No pericardial effusion. Aorta Normal size aortic root and proximal ascending aorta. CONCLUSIONS LVEF 50 to 55% Mild concentric LVH Normal right ventricular size and function. No significant valvular dysfunction No evidence of [id number] intracardiac shunting on bubble study Previewed by: Dr Harris Chavez (Electronically Signed) Final Date: 01 August 2024 17:46
[2024-08-01 20:19] LABS: Glucose,Whole Blood 194 mg/dL (70-110)
--- NOTE | 2024-08-02 00:19 | P.PN ---
Subjective Progress Note Date: 08/01/24 Patient was seen for a follow-up. Patient is laying in the bed, offers no complaints. I asked about situation that led to patient's presenting neurological symptoms. Patient states that he was under the truck, but the truck was not running. He was working outside on the truck, and was outside only for about 10 minutes. He states that he was well covered With Jacket, and does not believe that was not exposed to excessive cold. He does not believe the symptoms were stroke or TIA, As there was no weakness noted. He was only just dizzy and off balance and his daughter noticed questionable facial droopiness. Objective - Vital Signs Vital signs: Vital Signs Temp 98.2 F 08/01/24 16:23 Pulse 58 L 08/01/24 16:23 Resp 16 08/01/24 16:23 BP 129/67 08/01/24 16:23 Pulse Ox 97 08/01/24 16:23 FiO2 Intake & Output 08/01/24 08/01/24 08/02/24 06:59 18:59 06:59 Intake Total 951 Balance 951 Intake: Oral 951 Other: Voiding Method Toilet # Voids 2 3 # Bowel Movements 1 - Exam Patient's mental status, speech and language functions are normal. Cranial nerves are all normal. He has slightly smaller right palpebral fissure, which is therefore at least last couple months. He plans to see an holistic pulser. On muscle strength testing, the strength is normal in the left arm and both legs. His right arm is slightly spastic from possible cerebral palsy. - Labs CBC & Chem 7: 07/30/24 18:43 07/30/24 18:43 Labs: Abnormal Lab Results - Last 24 Hours (Table) 07/31/24 08/01/24 08/01/24 Range/Units 20:46 06:14 17:39 POC Glucose (mg/dL) 137 H 64 L 159 H (70-110) mg/dL Assessment and Plan Assessment: * Questionable TIA manifesting with dizziness, off balance, and some facial droop noticed by patient's daughter. Symptoms resolved in about 20-22 hours. At present he has no symptoms at all symptoms resolved. * Diabetes * History of cerebral palsy with right arm weakness. Plan: * Patient underwent workup for TIA. * 2-D echo revealed LVEF 50 to 55%. Moderately increased septal wall thickness. Mild concentric LVH. No significant valvular dysfunction. No evidence of right to left intracardiac shunting on bubble study. * CTA head and neck showed: No significant stenosis in the carotid bifurcations. No large vessel occlusion at the level of [place]. * Fasting a.m. lipid panel with cholesterol 119, LDL 54, HDL 42, triglycerides 67. Lipids well-controlled. Continue home dose of simvastatin 80 mg daily. * Hemoglobin A1c 5.6, very well controlled * B12 524, folate 15.7, both normal. * Blood pressure is well-controlled. * Patient was taking aspirin 81 mg daily prior to arrival. It is not very clear if these symptoms were TIA, as there was no clear lateralizing signs. All workup as mentioned above are normal. Patient does not believe he had any stroke/TIA. I would suggest keeping patient on DAPT with aspirin and Plavix for 21 days, then stop Plavix, and continue aspirin indefinitely. * Neuro checks every 4 hours. * Telemetry monitoring rule out any arrhythmia * DVT prophylaxis: Patient is low risk, as patient is ambulatory. * Neurologically clear for discharge in the morning.
[2024-08-02 06:26] LABS: Glucose,Whole Blood 106 mg/dL (70-110)
[2024-08-02 11:51] LABS: Glucose,Whole Blood 86 mg/dL (70-110)
--- NOTE | 2024-08-02 12:23 | P.CRDCN ---
History of Present Illness Consult date: 08/02/24 Reason for Consult (text): Irregular heart rate History of present illness: This is a 86-year-old male with past medical history of diabetes, hypertension, hyperlipidemia, BPH. We have been asked to evaluate the patient for irregular heart rate. Patient presented to the emergency center on 07/30 and was admitted to the hospital and treated for headache followed by neurology for possible TIA. Neurology has recommended keeping the patient on aspirin and Plavix for 21 days and then stopping Plavix and continuing aspirin indefinitely. Patient denies having any previous cardiac issues. Patient states he came into the hospital due to dizziness and his daughter thought he had a drooping face. He feels that he is back to normal. He denies having any racing of his heart and no syncopal episode. All telemetry has been reviewed and no signs of atrial fibrillation. Patient is having sinus rhythm with PVCs. Patient is expecting a discharge home today. -EKG: Sinus rhythm with first-degree heart block, right bundle branch block -Chest x-ray: No acute process. -CTA head and neck showed: No significant stenosis in the carotid bifurcations. No large vessel occlusion at the level of [place]. -Laboratory studies: CBC within normal limits. CMP unremarkable. Troponin negative x 1. Triglycerides 67, cholesterol 110, LDL 54, HDL 42. Influenza A, influenza B, RSV, COVID-19 not detected. A1c 5.6 -Home cardiac medications: Aspirin 81 mg daily, lisinopril 10 mg daily, simvastatin 80 mg daily. -Echocardiogram performed on this admission reveals EF 50 to 55%, moderately increased septal wall thickness. Mild concentric LVH. No significant valvular dysfunction. No evidence of right to left intracardiac shunting on bubble study. Review Of Systems: At the time of my exam: CONSTITUTIONAL: Denies fever or chills. HEENT: Denies blurred vision, vision changes, or eye pain. Denies hemoptysis CARDIOVASCULAR: Denies chest pain. Denies orthopnea. Denies PND. Denies palpitations RESPIRATORY: Denies shortness of breath. GASTROINTESTINAL: Denies abdominal pain. Denies nausea or vomiting. HEMATOLOGIC: Denies bleeding disorders. GENITOURINARY: Denies any blood in urine. SKIN: Denies puritis. Denies rash. Physical examination: Gen: This is an 78-year-old male in no acute distress VS: reviewed HEENT: Head is atraumatic, normocephalic. Pupils equal, round. Sclerae is anicteric. NECK: Supple. No JVD. LUNGS: Clear to auscultation. No wheezes or rhonchi. No intercostal retractions. HEART: Regular rate and rhythm. No murmur. ABDOMEN: Soft No tenderness. EXTREMITIES: No pedal edema. No calf tenderness. NEUROLOGICAL: Patient is awake, alert and oriented x3. Assessment: Sinus rhythm with PVCs TIA Diabetes Hypertension Hyperlipidemia BPH Plan: Continue patient's home cardiac medications Plavix has been added by neurology to continue with aspirin for 21 days and then discontinue Plavix Patient is cleared for discharge from cardiology and may follow-up in the office in 1 to [address] Scott. Thank you kindly for this consultation. Nurse practitioner note has been reviewed, I agree with documented findings and plan of care. Patient was seen and examined. Past Medical History Past Medical History: Diabetes Mellitus History of Any Multi-Drug Resistant Organisms: None Reported Past Surgical History: Orthopedic Surgery Additional Past Surgical History / Comment(s): lt shoulder Past Psychological History: No Psychological Hx Reported Smoking Status: Never smoker Past Alcohol Use History: None Reported Past Drug Use History: None Reported - Past Family History Mother Family Medical History: Diabetes Mellitus Father Family Medical History: CVA/TIA Brother(s) Family Medical History: Diabetes Mellitus Medications and Allergies Home Medications Medication Instructions Recorded Confirmed Type Aspirin EC [Ecotrin Low Dose] 81 mg PO DAILY 07/30/24 07/30/24 History Ibuprofen [Motrin] 800 mg PO TID PRN 07/30/24 07/30/24 History Insulin Glargine,Hum.rec.anlog 40 unit SQ DAILY 07/30/24 07/31/24 History [Basaglar Kwikpen U-100] Simvastatin [Zocor] 80 mg PO DAILY 07/30/24 07/30/24 History Tamsulosin [Flomax] 0.4 mg PO DAILY 07/30/24 07/30/24 History lisinopriL [Zestril] 10 mg PO DAILY 07/30/24 07/30/24 History metFORMIN HCL [Glucophage] 1,000 mg PO BID 07/30/24 07/30/24 History Dulaglutide [Trulicity] 0.75 mg SQ MO 07/31/24 07/31/24 History Allergies Allergy/AdvReac Type Severity Reaction Status Date / Time No Known Allergies Allergy Verified 07/30/24 20:12 Physical Exam Vitals: Vital Signs Temp Pulse Pulse Resp BP Pulse Ox 08/02/24 07:00 98.7 F 72 15 134/69 98 08/02/24 02:32 97.7 F 63 17 122/63 100 08/01/24 19:46 98.0 F 76 17 125/56 97 08/01/24 16:23 98.2 F 58 L 16 129/67 97 08/01/24 09:49 98 Intake and Output 08/01/24 08/02/24 08/02/24 22:59 06:59 14:59 Intake Total 591 Balance 591 Intake: Oral 591 Other: Voiding Method Toilet Toilet # Voids 1 2 Results 07/30/24 18:43 07/30/24 18:43 Lipids 08/01/24 Range/Units 03:32 Triglycerides 67.20 (0.00-149.00) mg/dL Cholesterol 110.00 (0.00-200.00) mg/dL HDL Cholesterol 42.10 (40.00-60.00) mg/dL Cholesterol/HDL Ratio 2.61 Ratio Current Medications Generic Name Dose Route Start Last Admin Trade Name Freq PRN Reason Stop Dose Admin Acetaminophen 650 mg 07/31/24 03:00 Acetaminophen Tab 325 Mg Tab PO Q6HR PRN Mild Pain or Fever > 100.5 Alprazolam 0.25 mg 07/30/24 21:04 Alprazolam 0.25 Mg Tab PO Q6HR PRN Anxiety Aspirin 81 mg 07/31/24 09:00 08/02/24 08:29 Aspirin 81 Mg PO 81 mg DAILY [facility] Administration Atorvastatin Calcium 40 mg 07/31/24 09:00 08/02/24 08:29 Atorvastatin 40 Mg Tab PO 40 mg DAILY [facility] Administration Ciprofloxacin 1 drops 07/30/24 22:00 08/02/24 08:29 Ciprofloxacin 0.3% Ophth Soln 5 Ml Btl RIGHT EYE 1 drops Q2H [facility] Administration Clopidogrel Bisulfate 75 mg 07/31/24 14:45 08/02/24 08:29 Clopidogrel 75 Mg Tab PO 75 mg DAILY [facility] Administration Famotidine 20 mg 07/31/24 09:00 08/02/24 08:29 Famotidine 20 Mg Tab PO 20 mg BID [facility] Administration Insulin Aspart 0 unit 07/31/24 07:30 08/02/24 06:32 Insulin Aspart (Novolog) 100 Unit/Ml Vial SQ Not Given AC-TID [facility] Protocol Insulin Detemir 40 unit 07/31/24 07:00 08/02/24 08:27 Insulin Detemir (Levemir) 100 Unit/Ml Syr SQ Not Given DAILY@0700 [facility] Lisinopril 10 mg 07/31/24 09:00 08/02/24 08:29 Lisinopril 10 Mg Tab PO 10 mg DAILY [facility] Administration Metformin HCl 1,000 mg 07/31/24 09:00 08/02/24 08:29 Metformin 500 Mg Tab PO 1,000 mg BID [facility] Administration Naloxone HCl 0.2 mg 07/30/24 21:04 Naloxone 0.4 Mg/Ml 1 Ml Vial IV Q2M PRN Opioid Reversal Prochlorperazine Maleate 5 mg 07/30/24 21:04 Prochlorperazine 5 Mg Tab PO Q8HR PRN Nausea And Vomiting Tamsulosin HCl 0.4 mg 07/31/24 09:00 08/02/24 08:29 Tamsulosin 0.4 Mg Cap.Er.24h PO 0.4 mg DAILY [facility] Administration Tramadol HCl 50 mg 07/30/24 21:04 Tramadol 50 Mg Tab PO Q6H PRN Moderate Pain (Scale 4 to 6) Intake and Output 08/01/24 08/02/24 08/02/24 22:59 06:59 14:59 Intake Total 591 Balance 591 Intake: Oral 591 Other: Voiding Method Toilet Toilet # Voids 1 2 07/30/24 18:43 07/30/24 18:43
[2024-08-02 14:10] VITALS: BP 156/71; PULSE 93; RESP 17; TEMP 97.6
--- NOTE | 2024-08-03 20:46 | P.DS ---
Providers Date of admission: 07/30/24 21:06 Attending physician: Ramón Rawls Consults: 07/30/24 21:04 Consult Physician Routine Consulting Provider: Anna Mitchell Consult Reason/Comments: MALDON[place]O, poss TIA Do you want consulting provider notified?: Yes, Notify in am 08/01/24 18:09 Consult Physician Routine Consulting Provider: Harris Chavez Consult Reason/Comments: irregular heart rate Do you want consulting provider notified?: Yes Primary care physician: Ramón Rawls Hospital Course: Final Diagnosis Sinus rhythm with PVCs TIA Diabetes Mellitus type 2 Hypertension Hyperlipidemia BPH Discharge Disposition Stable for discharge home. Patient to follow up with Dr Scott in the office in 1 to 2 weeks. Patient to establish care with a neurologist on discharge. Follow up with PCP Dr. Rawls 1 to 2 day. Hospital Course This is a 86-year-old male with past medical history of diabetes, hypertension, hyperlipidemia, BPH. The patient came in with significant temporal headache. TIA workup is pending. Neurology was consulted. Echocardiogram reveals EF 50 to 55%, moderately increased septal wall thickness. Mild concentric LVH. No significant valvular dysfunction. No evidence of right to left intracardiac shunting on bubble study. CTA head and neck showed: No significant stenosis in the carotid bifurcations. No large vessel occlusion at the level of [place]. Laboratory studies: CBC within normal limits. CMP unremarkable. Troponin negative x 1. Triglycerides 67, cholesterol 110, LDL 54, HDL 42. Influenza A, influenza B, RSV, COVID-19 not detected. A1c 5.6. EKG: Sinus rhyt hm with first-degree heart block, right bundle branch block. Chest xray negative for acute findings. Patients neurological symptoms have completely resolved at this time. Patient has been advised to take aspirin and plavix together for 21 days than discontinue the plavix and continue on aspirin 81 mg daily. Patient is agreeable to this plan. He has been up ambulating without difficulties and no fo darryl neurological deficits noted. No chest pain or shortness of breath. Please see medication reconciliation for a list of current medications. Thank you for allowing us to participate in the care of this patient. The impression and plan of care has been dictated by Nancy Diez Nurse Practitioner as directed. Dr. Serina MD I have performed a history and physical examination and medical decision making of this patient, discussed the same with the dictator, and agree with the dictators assessment and plan as written, documented as a scribe. Based on total visit time, I have performed more than 50% of this visit. Patient Condition at Discharge: Stable Plan - Discharge Summary Discharge Rx Participant: No New Discharge Prescriptions: New Ciprofloxacin Ophth Soln [Ciloxan 0.3% Ophth Soln] 1 drops RIGHT EYE Q4H 5 Days #1 each Clopidogrel [Plavix] 75 mg PO DAILY #21 tab Continue Aspirin EC [Ecotrin Low Dose] 81 mg PO DAILY lisinopriL [Zestril] 10 mg PO DAILY Insulin Glargine,Hum.rec.anlog [Basaglar Kwikpen U-100] 40 unit SQ DAILY Dulaglutide [Trulicity] 0.75 mg SQ MO Ibuprofen [Motrin] 800 mg PO TID PRN PRN Reason: Pain Simvastatin [Zocor] 80 mg PO DAILY metFORMIN HCL [Glucophage] 1,000 mg PO BID Tamsulosin [Flomax] 0.4 mg PO DAILY Discharge Medication List Aspirin EC [Ecotrin Low Dose] 81 mg PO DAILY 07/30/24 [History] Ibuprofen [Motrin] 800 mg PO TID PRN 07/30/24 [History] Insulin Glargine,Hum.rec.anlog [Basaglar Kwikpen U-100] 40 unit SQ DAILY 07/30/24 [History] Simvastatin [Zocor] 80 mg PO DAILY 07/30/24 [History] Tamsulosin [Flomax] 0.4 mg PO DAILY 07/30/24 [History] lisinopriL [Zestril] 10 mg PO DAILY 07/30/24 [History] metFORMIN HCL [Glucophage] 1,000 mg PO BID 07/30/24 [History] Dulaglutide [Trulicity] 0.75 mg SQ MO 07/31/24 [History] Ciprofloxacin Ophth Soln [Ciloxan 0.3% Ophth Soln] 1 drops RIGHT EYE Q4H 5 Days #1 each 08/02/24 [Rx] Clopidogrel [Plavix] 75 mg PO DAILY #21 tab 08/02/24 [Rx] Follow up Appointment(s)/Referral(s): Sadi Scott DO [STAFF PHYSICIAN] - 1 Week Ramón Rawls MD [Primary Care Provider] - 1-2 days Umang Camara DO [STAFF PHYSICIAN] - 1 Week (Neurology) Patient Instructions/Handouts: Acute Headache (DC) Activity/Diet/Wound Care/Special Instructions: Need to establish care with a neurologist on discharge Continue eye gtts for 5 more days Continue aspirin plavix together for the next 21 days than discontinue the plavix. Continue aspirin 81 mg daily. Discharge Disposition: HOME SELF-CARE
== END 2024-08-02 14:20 | disposition home or self-care (01) ==
LOC: EC 17:54 → 6NMEDSUR 21:06 → 1SOBS 21:35 → 6NMEDSUR 07-31 14:42
PROVIDERS: ADMIT Family Medicine; ATTEND Family Medicine
DX: G45.9 Transient cerebral ischemic attack, unspecified (principal); I49.3 Ventricular premature depolarization; E11.9 Type 2 diabetes mellitus without complications; I44.0 Atrioventricular block, first degree; I45.10 Unspecified right bundle-branch block; I10 Essential (primary) hypertension; E78.5 Hyperlipidemia, unspecified; N40.0 Benign prostatic hyperplasia without lower urinary tract symptoms; G80.9 Cerebral palsy, unspecified; R09.81 Nasal congestion; E66.9 Obesity, unspecified; Z68.30 Body mass index [BMI] 30.0-30.9, adult; Z79.82 Long term (current) use of aspirin; Z79.85 Long-term (current) use of injectable non-insulin antidiabetic drugs; Z79.84 Long term (current) use of oral hypoglycemic drugs; Z79.4 Long term (current) use of insulin; Z79.899 Other long term (current) drug therapy; Z11.52 Encounter for screening for COVID-19; Z11.59 Encounter for screening for other viral diseases
CPT/HCPCS: 99285; 36415; 94760; 93005; 93306; 80061; 80053; 85652; 82607; 82550; 82746; 84484; 85025; 85610; 85730; 86140; 83036; 87636; 71046; 70496; 70450; 70498; G0378 ×6; J7512; Q9967